=== PATIENT | female | born 1935 | race Caucasian/White ===

== ENCOUNTER 2018-12-22 18:21 | Inpatient (IN) ==
[2018-12-22 18:55] LABS: BASO# 0.06 X1000 (0.0-0.2); BASO% 0.7 % (0.0-0.8); EOS# 0.28 X1000 (0.0-0.7); EOS% 3.3 % (0.0-10.0); HEMATOCRIT 40.4 % (37.0-47.0); HEMOGLOBIN 13.4 g/dL (12.0-16.0); IMM GRAN# 0.01 X1000 (0.0-0.04); IMM GRAN% 0.1 % (0.0-0.5); LYMPH% 28.1 % (20.5-51.1); MCH 30.9 PG (27-31); MCHC 33.2 g/dL (33-37); MCV 93.1 FL (81-99); MONO# 1.06 X1000 (0.11-0.59); MONO% 12.4 % (1.7-9.3); MPV 10.9 FL (7.4-10.4); NEUT# 4.73 X1000 (1.4-6.5); NEUT% 55.4 % (42.2-75.2); PLT 213 X1000 (130-400); RBC 4.34 XMIL (4.2-5.4); RDW 14.6 % (11.5-14.5); WBC 8.54 X1000 (4.8-10.8)
[2018-12-22 19:23] LABS: CALCIUM 8.6 mg/dL (8.8-10.2); MAGNESIUM 2.3 mg/dL (1.5-2.7); POTASSIUM 4.1 mmol/L (3.5-5.1); TOTAL BILIRUBIN 0.3 mg/dL (0.20-1.00); TOTAL PROTEIN 6.5 g/dL (6.3-8.3)
[2018-12-22 19:29] LABS: INR 0.95; PROTIME 13.2 Seconds (11.0-16.0)
--- NOTE | 2018-12-22 19:29 | PROVIDER DOCUMENTATION ---
HPI-Respiratory General - General Chief Complaint: Shortness of Breath Stated Complaint: SOB, BP PRROBLEMS Time Seen by Provider: 12/22/18 19:12 Allergies/Adverse Reactions: Patient Allergies Allergy/AdvReac Type Severity Reaction Status Date / Time No Known Allergies Allergy Verified 09/01/16 00:38 Home Medications: Home Medication List Medication Instructions Recorded Confirmed Last Taken Type Aspirin 325 mg PO BID 11/09/12 12/22/18 06/29/15 History Iron Fum & P/FA/Vit B & C No.9 1 each PO DAILY 11/09/12 12/22/18 06/29/15 History [Integra Plus Capsule] Omeprazole/Sodium Bicarbonate 20 mg PO DAILY 06/24/15 12/22/18 06/29/15 History [Zegerid 20 mg] Metronidazole [Flagyl] 250 mg PO BID 06/29/15 12/22/18 06/29/15 History Ciprofloxacin 0.3% Ophth Soln 1 drop OPH DAILY 06/30/15 12/22/18 06/28/15 21:00 History [Ciloxan Ophth Soln] Magnesium Hydroxide [Milk of 45 ml PO HS PRN PRN 06/30/15 12/22/18 06/28/15 21:00 History Magnesia] Hydrocodone/APAP 10 mg/325 mg 1 each PO Q4-6H PRN PRN #30 tablet 07/03/15 12/22/18 Unknown Rx [Sheridan-10] Acetaminophen with Codeine 1 each PO Q4H PRN PRN #20 tablet 09/01/16 12/22/18 Unknown Rx [Tylenol with Codeine #3] Ondansetron HCl [Zofran] 1 tab PO Q6H PRN PRN #12 tablet 11/23/16 12/22/18 Unknown Rx Oxycodone/APAP 5 mg/325 mg 1 ea PO Q4H PRN PRN #10 tab 11/23/17 12/22/18 Unknown Rx [Percocet-5] - History of Present Illness-Resp Nature of Presenting Problem: reports that she has been having sob and general weakness since friday. sob with chest pressure that lasts a few minutes. +nausea. denied fever, chills, cough, diarrhea, dysuria problem. history of PE in 1964, was on coumadin however transition to high dose ASA for awhile now. Review of Systems - Adult - REVIEW OF SYSTEMS - ADULT Constitutional: reports: no symptoms reported Eyes: reports: no symptoms reported Ears, Nose, Mouth & Throat: reports: no symptoms reported Cardiovascular: reports: no symptoms reported Respiratory: reports: no symptoms reported Gastrointestinal: reports: no symptoms reported Genitourinary: reports: no symptoms reported Musculoskeletal: reports: no symptoms reported Integumentary: reports: no symptoms reported Neurological: reports: no symptoms reported Psychiatric: reports: no symptoms reported Endocrine: reports: no symptoms reported Hematologic/Lymphatic: reports: no symptoms reported Allergic/Immunologic: reports: no symptoms reported All Other Systems: Reviewed and Negative Past History - Adult - PAST MEDICAL HISTORY-ADULT Review of Records: reports: Old Records Reviewed, Nursing Assessment Review, Medications Reviewed, Social history reviewed & non-contributory. Major Childhood Illnesses: reports: denies history Cardiovascular: reports: HTN Respiratory: reports: denies history Gastrointestinal: reports: other (colon polyps) Obstetrical/Gynecological: reports: denies history Genitourinary: reports: denies history Musculoskeletal: reports: denies history Neurological: reports: denies history Endocrine/Immune: reports: denies history Other Conditions: reports: denies history - PRIOR SURGERIES/PROCEDURES Surgical/Procedure History: reports: cholecystectomy, hysterectomy, orthopedic (extremity) (total knee replacement, hip prosthesis), other (hemoroidectomy, colon surgery for polyps) - IMMUNIZATION STATUS Childhood Immunizations: See Nurse Assessment Flu Vaccine: See Nurse Assessment - FAMILY HISTORY Family History: reviewed, not pertinent - SOCIAL HISTORY Smoking: denies Substance Use: none/never Alcohol Use Frequency: never Living Situation: family Physical Exam-General - PHYSICAL EXAM-ADULT Initial Vital Signs Reviewed: Yes - CONSTITUTIONAL General Appearance: appears well, alert, no apparent distress - EYES Eyes: PERRL/EOMI, pink conjunctivae - HEAD, EARS, NOSE, MOUTH & THROAT HENMT: normocephalic/atraumatic, moist mucous membranes, normal ENT inspection - NECK Neck: non-tender, full range of motion - RESPIRATORY Respiratory: chest non-tender, lungs clear, normal breath sounds - CARDIOVASCULAR Cardiovascular: normal peripheral pulses, regular rate, rhythm, no edema - GASTROINTESTINAL (ABDOMEN) Abdominal Exam: normal bowel sounds, non tender - MUSCULOSKELETAL Back Exam: normal inspection, no CVA tenderness, no vertebral tenderness Extremity: normal range of motion, non-tender, normal gait Peripheral Pulses: radial (R): 2+, radial (L): 2+ - SKIN Integumentary: normal color, normal turgor, warm/dry - NEUROLOGIC Neurologic: grossly normal, no motor/sensory deficits - PSYCHIATRIC Psych/Mental Status: normal mood/affect, normal thought content, normal thought process, oriented x 3 - HEART Score HEART Score: History: Moderately Suspicious HEART Score: ECG: Non-Specific Repolarization Disturbance/LBBB/PM HEART Score: Age: > or = 65 Years HEART Score: Risk Factors for Atherosclerotic Disease: 1 or 2 Risk Factors HEART Score: Troponin: < or = Normal Limit Total HEART Score:: 5 Progress - PLAN OF CARE/RESULTS Progress/Plan/Lab Results: Vital Signs - 8 hr 12/22/18 18:27 12/22/18 20:14 12/22/18 21:50 Temperature 97.6 F Pulse Rate 76 71 70 Respiratory Rate 18 16 16 Blood Pressure 166/56 141/93 172/67 O2 Sat by Pulse Oximetry 95 98 97 Laboratory Results - last 24 hr 12/22/18 12/22/18 12/22/18 18:45 18:45 18:45 WBC 8.54 RBC 4.34 Hgb 13.4 Hct 40.4 MCV 93.1 MCH 30.9 MCHC 33.2 RDW Std Deviation 14.6 H Plt Count 213 MPV 10.9 H Immature Gran % (Auto) 0.1 Neut % (Auto) 55.4 Lymph % (Auto) 28.1 [place] % (Auto) 12.4 H Eos % (Auto) 3.3 Baso % (Auto) 0.7 Immature Gran # (Auto) 0.01 Neut # (Auto) 4.73 Lymph # (Auto) 2.40 [place] # (Auto) 1.06 H Eos # (Auto) 0.28 Baso # (Auto) 0.06 PT INR D-Dimer, Quantitative Sodium Potassium Chloride Carbon Dioxide Anion Gap BUN Creatinine Estimated GFR/1.73 m2 BUN/Creatinine Ratio Glucose Calculated Osmolality Calcium Magnesium Total Bilirubin AST ALT Alkaline Phosphatase Creatine Kinase 53 Troponin T < 0.010 Oio-P-Wvhqeqmqcmf Pept Total Protein Albumin Globulin Albumin/Globulin Ratio 12/22/18 12/22/18 12/22/18 18:45 18:45 18:45 WBC RBC Hgb Hct MCV MCH MCHC RDW Std Deviation Plt Count MPV Immature Gran % (Auto) Neut % (Auto) Lymph % (Auto) [place] % (Auto) Eos % (Auto) Baso % (Auto) Immature Gran # (Auto) Neut # (Auto) Lymph # (Auto) [place] # (Auto) Eos # (Auto) Baso # (Auto) PT INR D-Dimer, Quantitative 0.38 Sodium 139 Potassium 4.1 Chloride 102 Carbon Dioxide 27 Anion Gap 11 BUN 24 H Creatinine 1.0 H Estimated GFR/1.73 m2 53 BUN/Creatinine Ratio 24 Glucose 118 H Calculated Osmolality 283 Calcium 8.6 L Magnesium 2.3 Total Bilirubin 0.30 AST 13 ALT 14 Alkaline Phosphatase 98 Creatine Kinase Troponin T Onw-E-Gfjcgegcjtu Pept 131 Total Protein 6.5 Albumin 4.0 Globulin 3.0 Albumin/Globulin Ratio 2.0 12/22/18 12/22/18 12/22/18 18:45 18:45 20:31 WBC RBC Hgb Hct MCV MCH MCHC RDW Std Deviation Plt Count MPV Immature Gran % (Auto) Neut % (Auto) Lymph % (Auto) [place] % (Auto) Eos % (Auto) Baso % (Auto) Immature Gran # (Auto) Neut # (Auto) Lymph # (Auto) [place] # (Auto) Eos # (Auto) Baso # (Auto) PT 13.2 INR 0.95 D-Dimer, Quantitative Sodium Potassium Chloride Carbon Dioxide Anion Gap BUN Creatinine Estimated GFR/1.73 m2 BUN/Creatinine Ratio Glucose Calculated Osmolality Calcium Magnesium 2.3 Total Bilirubin AST ALT Alkaline Phosphatase Creatine Kinase Troponin T < 0.010 Muq-S-Coqabyxvtyt Pept Total Protein Albumin Globulin Albumin/Globulin Ratio Orders Category Date Time Status Admit - [facility] Routine AdmDCTranf 12/22/18 22:52 Active Nursing- Obtain EKG ONCE Care 12/22/18 18:32 Active CHEST-2 VIEWS [RAD] Stat Exams 12/22/18 18:32 Completed CBC WITH DIFF [HEME] Stat Lab 12/22/18 18:45 Completed CK PROFILE [SP CHEM] Stat Lab 12/22/18 18:45 Completed COMPREHENSIVE METABOLIC PANEL [CHEM] Stat Lab 12/22/18 18:45 Completed D-DIMER [COAG] Stat Lab 12/22/18 18:45 Completed MAGNESIUM [CHEM] Stat Lab 12/22/18 18:45 Completed MAGNESIUM [CHEM] Stat Lab 12/22/18 18:45 Completed PRO B-NATRIURETIC PEPTIDE Stat Lab 12/22/18 18:45 Completed PROTIME WITH INR [COAG] Stat Lab 12/22/18 18:45 Completed TROPONIN T Stat Lab 12/22/18 18:45 Completed TROPONIN T Stat Lab 12/22/18 20:31 Completed TROPONIN T Stat Lab 12/23/18 06:00 Ordered EKG [EKG] Stat Ther 12/22/18 18:32 Draft EKG [EKG] Stat Ther 12/22/18 20:15 Draft EKG [EKG] Stat Ther 12/22/18 22:54 Ordered Transfer/Admit Order [TRANSFER] Routine Transfer 12/22/18 22:53 Completed Result Diagrams: 12/22/18 18:45 12/22/18 18:45 - CONSULTS/PCP/HOSPITALIST Notification #1 *Consult/PCP/Hospitalist*: Rubi Batres Consult Disposition: Admit Departure - Departure Date of Disposition Decision: 12/22/18 Time of Disposition Decision: 22:30 DIAGNOSIS: ACS (acute coronary syndrome), NISHA (acute kidney injury) Disposition: ADMITTED INPATIENT 09 Certified Medical Emergency: Emergent Condition: Stable - Critical Care Note This patient required my direct & personal management of CC.: No Attestation - Physician/ SOHAIL Attestation The physician spent face to face time with patient:: Yes Advanced Practice Provider documentation review:: Supervising physician onsite and consulted in the evaluation and care of this patient. The physician did have a face to face encounter with the patient.
--- NOTE | 2018-12-22 20:50 | EKG Report ---
Test Performed on : 12/22/2018 6:38:13 PM Test Reason : sob weakness Blood Pressure : / mmHG Vent. Rate : 073 BPM Atrial Rate : 073 BPM P-R Int : 158 ms QRS Dur : 082 ms QT Int : 402 ms P-R-T Axes : 049 -17 012 degrees QTc Int : 442 ms Normal sinus rhythm. Possible Left atrial enlargement Left ventricular hypertrophy Abnormal ECG When compared with ECG of 22-NOV-2016 22:58, No significant change was found Unconfirmed Result
--- NOTE | 2018-12-22 20:55 | Diag Imaging Result Doc PS360 ---
EXAM: CHEST-2 VIEWS INDICATION: sob TECHNIQUE: 2 views COMPARISON: 07/20/2018 FINDINGS: There is mild linear scarring and/or subsegmental atelectasis at the mid and lower lung zones bilaterally. The lungs are grossly clear, otherwise. There is no discrete pleural fluid collection or pneumothorax. The cardiomediastinal silhouette and central vasculature are grossly unremarkable. IMPRESSION: Mild subsegmental atelectasis and/or scarring at the mid and lower lung zones. No definite acute pathology, otherwise. Electronically signed by Juanito Mckee 12/22/2018 8:53 PM
--- NOTE | 2018-12-22 21:42 | EKG Report ---
Test Performed on : 12/22/2018 8:58:15 PM Test Reason : CP Blood Pressure : / mmHG Vent. Rate : 071 BPM Atrial Rate : 071 BPM P-R Int : 166 ms QRS Dur : 080 ms QT Int : 426 ms P-R-T Axes : 053 -17 013 degrees QTc Int : 462 ms Normal sinus rhythm. Possible Left atrial enlargement Left ventricular hypertrophy Abnormal ECG When compared with ECG of 22-DEC-2018 18:38, (Unconfirmed) No significant change was found Unconfirmed Result
[2018-12-23] MEDS ORDERED: SINGULAIR PO ONE (00:12)
[2018-12-23] MEDS ORDERED: AYR NASAL SPRAY NAS ONE (00:13)
[2018-12-23 00:37] LABS: BILIRUBIN URINE NEGATIVE (NEGATIVE); BLOOD URINE NEGATIVE (NEGATIVE); CLARITY HAZY (CLEAR); COLOR YELLOW; GLUCOSE URINE NEGATIVE (NEGATIVE); KETONE URINE TRACE mg/dL (NEGATIVE); LEUKOCYTES URINE 2+ (NEGATIVE); NITRITE URINE NEGATIVE (NEGATIVE); PROTEIN URINE TRACE mg/dL (NEGATIVE); UROBILINOGEN URINE NORMAL
[2018-12-23 00:52] LABS: URINE BACTERIA 3+ /HFP; URINE EPITHELIAL CELLS <10 /HPF (<10); URINE SOURCE CLEAN CATCH
[2018-12-23] MEDS ORDERED: PERCOCET-5 PO PRN (09:06)
[2018-12-23] MEDS ORDERED: MILK OF MAGNESIA PO PRN (09:06)
[2018-12-23] MEDS ORDERED: TYLENOL WITH CODEINE #3 PO PRN (09:06)
[2018-12-23] MEDS ORDERED: ASPIRIN PO SCH ×2 (09:15→21:00)
[2018-12-23] MEDS ORDERED: THERA M PLUS PO SCH (09:15)
[2018-12-23] MEDS ORDERED: SINGULAIR PO SCH (09:15)
[2018-12-23] MEDS ORDERED: SEPTRA DS PO SCH (09:30)
[2018-12-23 09:51] LABS: IRON SATURATION 32 %; TIBC 228 ug/dL; TOTAL IRON 72 ug/dL (49-151); UNBOUND IRON 156 ug/dL (112-346)
[2018-12-23 10:15] LABS: FREE T4 1.42 ng/dL (0.93-1.70); TSH 1.82 uIUmL (0.27-4.20)
--- NOTE | 2018-12-23 10:48 | HISTORY AND PHYSICAL ---
PRIMARY CARE PHYSICIAN: Chris Mahajan MD CHIEF COMPLAINT: Generalized weakness and shortness of breath with some dizziness that started on Friday and progressively worsened. HISTORY OF PRESENTING ILLNESS: This is an 83-year-old female who presents to [facility] ER with complaints of generalized weakness, shortness of breath, and some chest "fullness," but no pain, that began on Friday and progressively worsened. States that she went out to eat with her daughter yesterday and at the end of their meal the daughter noticed that she appeared pale in color, very fatigued, and short of breath so she came into the emergency room for evaluation. Workup showed an O2 saturation on room air of 95%. Her D-dimer was normal at 0.38. She had 3 sets of troponins that were negative. Her urinalysis had 2+ white blood cells, 3+ bacteria, but no nitrites. Chest x-ray showed no definite acute pathology. The patient states that she has had a history of being anemic in the past and does take an iron tablet daily, but she was admitted for further evaluation and treatment. PAST MEDICAL HISTORY: Pulmonary embolism back in the 1960s/1970s and hypertension. PAST SURGICAL HISTORY: Cholecystectomy, hysterectomy, total knee replacement, hip replacement, and hemorrhoidectomy. FAMILY HISTORY: Reviewed and noncontributory. SOCIAL HISTORY: She currently lives alone. Denies any tobacco, alcohol, or illicit drug use. ALLERGIES: She has no known drug allergies. HOME MEDICATIONS: She takes senna-S 2-4 tablets p.o. at bedtime, Tylenol with codeine #3 one p.o. q.4 hours p.r.n., aspirin 325 mg p.o. b.i.d., iron supplement 1 tablet daily, milk of magnesia 45 mL p.o. at bedtime p.r.n., Singulair 10 mg p.o. daily, Zegerid 20 mg p.o. daily, and Percocet 5 mg 1 p.o. q.4 h. p.r.n. DIAGNOSTIC STUDIES: Laboratory data showed a white blood cell count of 8.54, hemoglobin 13.4, hematocrit 40.4, platelets 213,000. PT 13.2, INR 0.95. D-dimer of 0.38. Sodium of 139, potassium 4.1, chloride 102, CO2 of 27, BUN of 24, creatinine of 1, glucose of 118, magnesium 2.3. Cardiac enzymes x3 sets are negative. ProBNP of 131. Urinalysis with 2+ white blood cells, 3+ bacteria, negative nitrites. Chest x-ray showed mild subsegmental atelectasis and/or scarring at the mid and lower lung zones, but no definite acute pathology. EKG with normal sinus rhythm at 71. REVIEW OF SYSTEMS: She denied any fever, chills, blurred vision. She has had dizziness, generalized weakness, fatigue, no energy, shortness of breath with minimal exertion that improves with rest. Denied any chest pain, but just felt a "fullness" in her chest. Denied any abdominal pain, constipation, diarrhea, or burning or hurting with urination. PHYSICAL EXAMINATION: VITAL SIGNS: On arrival she had a temperature of 97.6 degrees, pulse 76, respirations 18, blood pressure 166/56, saturating 95% on room air. GENERAL: This is an 83-year-old female who is sitting up in the bed and answers questions appropriately. HEMNT: Normocephalic, atraumatic. Normal ENT inspection. Oropharynx and nares are clear. EYES: Pupils are equal, round, and reactive to light and accommodation. Extraocular movements are intact. NECK: Normal inspection. Normal range of motion. LUNGS: Clear to auscultation bilaterally with equal lung expansion and chest wall movement. HEART: With regular rate and rhythm. No murmurs, rubs, or gallops. ABDOMEN: Soft, nontender, nondistended. Bowel sounds are present x4 quadrants. MUSCULOSKELETAL: She has 5/5 strength x4 extremities. NEUROLOGICAL: Cranial nerves 2 through 12 appear grossly intact. ASSESSMENT: 1. Generalized weakness. 2. Shortness of breath. 3. Urinary tract infection. 4. Hypertension, history of. PLAN: She was admitted to the medical unit, placed on a healthy heart diet. We will continue her home medications. I am going to start her on a Bactrim DS 1 p.o. b.i.d. We are going to check some iron studies and thyroid studies today. If all of that is normal, it is felt that she can most likely be discharged home later after being seen by attending today. She states she is feeling much better today, and she denies having any dark black tarry stools or any blood in her stool or urine. She will be evaluated by attending, and we will make that decision after reviewing these labs. Dictated by MARILYN Xiao for Danny Hassan MD Addendum: Patient seen and examined by myself. Agree with MARILYN note. It reflects my assessment and plan. Patient has been admitted for chest discomfort last night. At that time 2 sets of troponins were negative. She has history of PE but D dimer is negative. Chest x ray is unremarkable and proBNP is normal. ER wanted to admit for observation. We have checked third set of troponins land classifier and is negative. Will all those exams done I think she can be safely discharged to be seen by her primary care doctor and be referred to cardiology for further evaluation. cc: MARILYN Xiao MD Brian R. James, MD MTDD
[2018-12-23 11:52] VITALS: BP 140/45
[2018-12-23 16:15] LABS: FERRITIN 63 ng/mL (13-150)
--- NOTE | 2018-12-23 22:42 | DISCHARGE SUMMARY ---
ADMISSION DATE: 12/22/2018 DISCHARGE DATE: 12/23/2018 PRIMARY CARE PHYSICIAN: Dr. Chris Mahajan. ADMISSION DIAGNOSES: 1. Generalized weakness. 2. Shortness of breath. 3. Urinary tract infection. 4. Hypertension, history of. DISCHARGE DIAGNOSES: 1. Generalized weakness, improved. 2. Shortness of breath, resolved. 3. Urinary tract infection. 4. Hypertension, history of. SUMMARY OF FINDINGS: This is an 83-year-old female who presented to the ER with complaints of generalized weakness, shortness of breath, and chest "fullness" but no pain that began on Friday and progressively worsened. Stated that she had went out to eat with her daughter yesterday and at the end there meal the daughter noticed that she had become pale in color, very fatigued and was short of breath. She brought her to the emergency room for evaluation, and she was admitted. She had 3 sets of troponins that were negative. Her urinalysis showed 2+ white blood cells, 3+ bacteria but no nitrites. Chest x-ray was negative. We did do an iron study that was normal. We checked the thyroid that showed a TSH of 1.82 and a free T4 of 1.42. She states she is feeling much better today. Denies any further shortness of breath, and it was felt that she could safely be discharged home. DISCHARGE MEDICATIONS: Tylenol with codeine #3 one p.o. q.4 hours p.r.n., aspirin 325 mg p.o. b.i.d., iron supplement 1 p.o. daily, milk of magnesia 45 mL p.o. at bedtime p.r.n., montelukast sodium 10 mg p.o. daily, Zegerid 20 mg p.o. daily and Senna S 2-4 tablets p.o. at bedtime. It was not felt that she needed an antibiotic for her urinary tract infection as she was asymptomatic. FOLLOWUP: She needs to follow up with her primary care physician in 1 to 2 weeks and call the office for an appointment. All discharge instructions have been reviewed with the patient, and she verbalized understanding. TIME SPENT: 33-minute discharge. Dictated by MARILYN Xiao for Danny Hassan MD Addendum: Patient seen and examined by myself. Agree with MARILYN note. It reflects my assessment and plan. Patient is being discharged in stable condition and will be seen by primary care doctor in a week. cc: MARILYN Xiao MD Brian R. James, MD MTDD
[2018-12-24] MEDS ORDERED: PRILOSEC PO SCH (07:00)
== END 2018-12-23 13:04 | disposition home or self-care (01) | DRG 948 ==
LOC: P.ED 18:21 → P.MEDSURG 23:20
PROVIDERS: ATTEND Internal Medicine
CPT/HCPCS: 71020; 71046; 74178; 80053; 81001; 82550; 82565; 82607; 82728; 82746; 83540; 83550; 83735; 83880; 84439; 84443; 84484; 84520; 85025; 85379; 85610; 87088; 93005; 99285; A9270; Q9967